=== PATIENT | male | born 1940 | race Caucasian/White ===

== ENCOUNTER 2021-09-07 09:53 | Inpatient (IN) | payer OTHER ==
[2021-09-07] VITALS (7 sets, daily range): BP systolic 83–126; BP diastolic 44–74
[~2021-09-07] VITALS: Wt 90.7 kg
[2021-09-07] MEDS ORDERED: LIPITOR40 MG PO (10:33)
[2021-09-07] MEDS ORDERED: PLAVIX75 M1 PO (10:34)
[2021-09-07 10:41] LABS: ABG BASE EXCESS 0.2 mmol/L (-2.0-2.0); ARTERIAL BLOOD GAS PH 7.43 (7.35-7.45); ARTERIAL BLOOD GAS PO2 56.3 (80-90)
[2021-09-07 10:54] LABS: BASO % 0.2 % (0.0-1.0); EOS # 0.1 10*3/uL (0.0-0.4); EOS % 0.5 % (1.0-4.0); HEMATOCRIT 39.3 % (42.0-52.0); LYMPH # 0.9 10*3/uL (1.3-4.4); MEAN CELL VOLUME 92.9 fl (80.0-94.0); MEAN CORPUSCULAR HGB 30.7 pg (27.0-31.0); MEAN CORPUSCULAR HGB CONC 33.1 g/dl (33.0-37.0); MONO # 0.8 10*3/uL (0.1-1.0); MONO % 4.4 % (3.0-9.0); NEUT # 15.7 10*3/uL (2.3-7.9); NEUT % 88.4 % (47.0-73.0); PLATELET COUNT AUTOMATED 306 10*3/uL (130-400); RED BLOOD COUNT 4.23 10*6/uL (4.50-5.90); RED CELL DISTRI WIDTH 13.2 % (0-14.5); WHITE BLOOD COUNT 17.8 10*3/uL (4.8-10.8)
[2021-09-07 11:07] LABS: ACT PARTIAL THROMBO TIME 41.9 SECONDS (20.0-32.1); INTERNATIONAL NORM RATIO 1.7 (2.0-3.5)
[2021-09-07 11:10] LABS: CREATININE 1.64 mg/dL (0.70-1.30); TOTAL PROTEIN 5.9 gm/dL (6.4-8.2)
[2021-09-07] MEDS ORDERED: CYMBALTA30 MG PO ×2 (15:33→19:30)
[2021-09-07] MEDS ORDERED: LOSARTAN POTASS50 M1 PO (15:34)
[2021-09-07] MEDS ORDERED: NEURONTIN300 MG PO (15:34)
[2021-09-07] MEDS ORDERED: HUMULIN 70/30 703 M1 SC (15:35)
[2021-09-07] MEDS ORDERED: MIRALAX17 GM PO (15:35)
[2021-09-07] MEDS ORDERED: NOVOLOG10 ML SC (15:36)
[2021-09-07] MEDS ORDERED: PROTONIX40 MG PO (15:36)
[2021-09-07] MEDS ORDERED: PROAIR HFA8.5 GM INH (15:37)
[2021-09-07] MEDS ORDERED: PREDNISONE5 MG PO (15:37)
[2021-09-07] MEDS ORDERED: Synthroid,Levo50 MCG PO (15:37)
[2021-09-07] MEDS ORDERED: XARE15TA PO (15:38)
[2021-09-07] MEDS ORDERED: ZINC50 M3 PO (15:38)
[2021-09-07] MEDS ORDERED: TYLENOL325 M1 PO (15:38)
[2021-09-07] MEDS ORDERED: Ipratropium Brom3 ML INH (19:32)
[2021-09-08] VITALS: BP 74/50
== END 2021-09-08 02:30 | DRG 871 ==
LOC: ED 09:53 → EDHOLD 17:05 → 4E 17:16
PROVIDERS: Emergency Medicine; ADMIT Internal Medicine; ATTEND Internal Medicine
DX: A41.9 Sepsis, unspecified organism (principal); U07.1 COVID-19; J96.01 Acute respiratory failure with hypoxia; I21.4 Non-ST elevation (NSTEMI) myocardial infarction; E43 Unspecified severe protein-calorie malnutrition; R65.20 Severe sepsis without septic shock; Z51.5 Encounter for palliative care; I13.10 Hypertensive heart and chronic kidney disease without heart failure, with stage 1 through stage 4 chronic kidney disease, or unspecified chronic kidney disease; E11.22 Type 2 diabetes mellitus with diabetic chronic kidney disease; I25.10 Atherosclerotic heart disease of native coronary artery without angina pectoris; N18.32 Chronic kidney disease, stage 3b; E11.51 Type 2 diabetes mellitus with diabetic peripheral angiopathy without gangrene; D64.9 Anemia, unspecified; R74.01 Elevation of levels of liver transaminase levels; E03.9 Hypothyroidism, unspecified; E78.5 Hyperlipidemia, unspecified; F32.A Depression, unspecified; K21.9 Gastro-esophageal reflux disease without esophagitis; Z86.73 Personal history of transient ischemic attack (TIA), and cerebral infarction without residual deficits; Z79.4 Long term (current) use of insulin; Z79.899 Other long term (current) drug therapy; Z86.16 Personal history of COVID-19; Z89.512 Acquired absence of left leg below knee